=== PATIENT | female | born 1960 | race Caucasian/White ===

== ENCOUNTER 2019-07-04 08:51 | Outpatient (CLI) | payer OTHER, SELFPAY ==
--- NOTE | 2019-07-04 09:12 | CT_ITS ---
WS: [id number] CT CHEST WITH INTRAVENOUS CONTRAST HISTORY: PULMONARY NODULES TECHNIQUE: Contiguous 5 mm axial imaging performed on the thorax. Coronal and sagittal reformats are submitted. All CT scans at [facility] use at least one of these dose optimization techniq ues: automated exposure control; mA and/or kV adjustment per patient size (includes targeted exams wh ere dose is matched to clinical indication); or iterative reconstruction. CONTRAST: Omnipaque 300; 95 mL IV. DLP: 914.59 mGycm COMPARISON: 05/21/2018 Lungs and central airway: Previously described opacifications and atelectasis in the RIGHT middle lob e have resolved since the prior study. Stable micronodules LEFT lower lobe, image 39 of series 3 and RIGHT lower lobe image 33 series 3. No suspicious mass or pneumonia. Pleura: Normal. No pleural effusion. Heart and pericardium: Normal size heart. No pericardial effusion. Mediastinum and hernando: No mediastinum or hilar adenopathy. Vessels: Normal size aortic and pulmonary artery. No coronary artery calcifications. Chest wall and lower neck: No soft tissue masses. Upper abdomen: Numerous gallstones are present in the gallbladder. No adjacent pericholecystic fluid or inflammation. Bilateral small parapelvic cysts. Moderate size hiatal hernia. There is a soft tissu e mass extending posterior from the stomach measuring 1.6 cm. Decreased attenuation centrally suggest ing there may be fluid present. This mass was also present on the prior study but increased in size b y about 5 mm in diameter. Mass is separate from the adrenal gland but does appear to contact the post erior wall of the stomach. Osseous structures: No destructive process. CT/CT chest w con* [id number] IMPRESSION: 1. Resolved RIGHT middle lobe opacification/nodules. No suspicious mass or pne umonia. 2. Cholelithiasis without acute cholecystitis. 3. Gastric diverticulum. 4. Moderate hiatal hernia.
[2019-07-04] MEDS: iohexol 300 mg/mL 100 mL Btl IV (09:34)
== END 2019-07-04 08:52 | disposition home or self-care (01) ==
LOC: RADWPI 08:58
PROVIDERS: PCP Student in an Organized Health Care Education/Training Program; Visit Provider Student in an Organized Health Care Education/Training Program
DX: K80.20 Calculus of gallbladder without cholecystitis without obstruction (principal); K31.4 Gastric diverticulum; K44.9 Diaphragmatic hernia without obstruction or gangrene; R91.8 Other nonspecific abnormal finding of lung field
CPT/HCPCS: 71260; Q9967

== ENCOUNTER → 2019-08-06 14:10 | Outpatient (BNVA) | payer OTHER, SELFPAY | PROVIDERS: PCP Student in an Organized Health Care Education/Training Program; Visit Provider Obstetrics & Gynecology | DX: N39.41 Urge incontinence (principal); N95.2 Postmenopausal atrophic vaginitis | CPT/HCPCS: 81003; 87086 ==

== ENCOUNTER → 2020-08-22 14:58 | Outpatient (BNVA) | payer BC, SELFPAY | PROVIDERS: PCP Student in an Organized Health Care Education/Training Program; Visit Provider Surgery | DX: Z01.812 Encounter for preprocedural laboratory examination (principal); Z20.828 Contact with and (suspected) exposure to other viral communicable diseases | CPT/HCPCS: 87635 ==

== ENCOUNTER 2020-08-28 07:34 | Day surgery (SDC) | payer BC, SELFPAY ==
[2020-08-27 12:57] VITALS: BMI 34.3
[2020-08-28] VITALS (12 sets, daily range): BP systolic 123–149; BP diastolic 68–84; PULSE 50–91; RESP 16–20; TEMP 36.3–36.9; O2SAT 90–97
[2020-08-28] MEDS: sodium chloride 0.9% 1,000 ML 30 ML IV (08:05)
--- NOTE | 2020-08-28 08:27 | ANES.PREANE2 ---
Pre-Anesthetic Assessment Pre-Anesthetic Assessment: Height/Weight: Height 1.63 m Weight 90.718 kg Temp Pulse Resp Pulse Ox 98.4 F 64 18 97 08/28/20 07:55 08/28/20 07:55 08/28/20 07:55 08/28/20 07:55 Preop Diagnosis: hernia Proposed Procedure: Operation Date: 08/28/20 09:00 Proposed Procedures p Incisional Hernia Repair w/ Possible Mesh [id number] K43.0(Not Applicable) - Jesse Ramos MD Familial anesthetic complications: None Was Beta Kevin taken within 24 hours: N/A Was Clonidine taken within 24 hours: N/A Last intake: Intake Last Liquid Date 08/28/20 Last Liquid Time 22:00 Last Solid Date 08/27/20 Last Solid Time 21:00 Social: Social History: No alcohol and No tobacco Exam: Pre-Anes Outpt Exam: alert, oriented x 3, clear to auscultation bilaterally and regular rate & rhythm Airway: Cervical ROM: WNL MP: 4 Dentition: Other (plates) Pulmonary: Pulmonary: Sleep apnea (undiagnosed, but patient states she wakes up after not breathing at night) CV/HEM: Comments: Patient states her Heart Rate drops very low at night, associated with when she obstructs and arouses from sleep GI: GI: GERD and Hiatus hernia Comments: Active GERD today Metabolic: Metabolic: Morbid obesity Anesthetic Plan: ASA status: 2 Anesthesia: General Other: RSI Risk of > 500 ml blood loss (7ml/kg in children): No Meds/Allergies Current Medications: Current Medications Generic Name Dose Route Start Last Admin Trade Name Freq PRN Reason Stop Dose Admin Sodium Chloride 1,000 mls @ 30 ml s/hr 08/28/20 07:45 08/28/20 08:05 Sodium Chloride 0.9% IV 08/29/20 07:44 30 mls/hr .Q24H EBER Administration PFSH Anesthesia PFSH: Medical History (Updated 08/09/19 @ 20:16 by Corey Ramos MD) Hiatal hernia with gastroesophageal reflux Hypertension Surgical History (Updated 08/09/19 @ 20:14 by Corey Ramos MD) H/O section (~1990) H/O: hysterectomy (~1991) With bladder tuck History of cholecystectomy (07/23/19) Laparoscopic History of surgery (~2003) Reports having had a bladder support surgery with some type of mesh used. States surgery was done abdominally. May have had an abdominal sacral colpopexy and [place]. Patient reports having RV fistula repair. Performed by Dr. Ramos at [facility] in [place], [place]. (Records are no longer available from hospital and old chart has not been located in storage.) History of vaginal surgery (07/13/16) Anterior vaginal repair. Dx: Cystocele. Performed by Dr. Ramos at [facility] in [place], [place]. Family History Mother Hypertension Family/Other Lung cancer Maternal Grandfather Diabetes Maternal aunt Social History Smoking and tobacco status: never smoked Alcohol intake: never Data Anesthesia Cardiac Studies: No Data to Display
--- NOTE | 2020-08-28 08:43 | W.PM.OPSUD ---
Surgery/Procedure H&P Update DATE OF PROCEDURE: August 28, 2020 DATE H&P PERFORMED: 08/12/20 H&P UPDATE INFORMATION: No changes to prior documentation PREOP DIAGNOSIS: hernia PLANNED PROCEDURE: Operation Date: 08/28/20 09:00 Proposed Procedures p Incisional Hernia Repair w/ Possible Mesh [id number] K43.0(Not Applicable) - Jesse Ramos MD
[2020-08-28] MEDS: metoclopramide 5 mg/mL SDV 2 mL IVP (08:45)
[2020-08-28] MEDS: famotidine 20 mg/2 mL INJ IVP (08:45)
--- NOTE | 2020-08-28 09:47 | PM.OP ---
Operative Report Date of procedure: August 28, 2020 Pre-op Diagnosis: Incisional hernia. Post-op diagnosis: same Procedure Done: Repair of incisional hernia. Pathology: none sent Surgeon: Jesse Ramos Anesthesia: General Estimated blood loss (mL): 5 Complications: None. Condition: stable Disposition: PACU Procedure: The patient was brought to the operating room and was placed in a supine position on the operating room table. General endotracheal anesthesia was induced. The abdomen was prepped and draped in a sterile fashion. An incision was carried out over the palpable hernia in the right upper quadrant at the lateral aspect of the previous 10 mm port site scar. Cautery was used to divide the subcutaneous tissue and the hernia sac was identified. This was freed on all sides down to the fascia where a defect measuring perhaps 5 cm in greatest diameter was found. The defect was closed transversely using multiple interrupted sutures of 0 Prolene after the hernia sac and contents have been reduced. The wound was irrigated with saline. The skin was reapproximated using a running subcuticular suture of 4-0 Vicryl. Benzoin and Steri-Strips were placed over the incision and the patient was taken to the recovery room postoperatively in stable condition.
[2020-08-28] MEDS: fentaNYL 50 mcg/mL INJ 2mL IVP (10:07)
--- NOTE | 2020-08-28 10:26 | SUR.PHASEI ---
PT SLEEPS WITH PAIN MEDS FOR PAIN OF 9/10 BUT WHEN AWAKE GRIMICES, HOLDS BREATH STATES PAIN IS UNCHANGED , SEE PAIN MED GIVEN EARLIER, PT REPEATEDLY AWAKENED AND INST TO DEEP BREATH, PT NOW ON 3LNC SATS 92% WILL GIVE REPORT TO OPS FOR FOLLOW UP WITH PO PAIN MEDS.
[2020-08-28] MEDS: HYDROcodone-acetaminophen 5-325 mg Tablet 1 TAB PO (10:51)
--- NOTE | 2020-08-28 10:54 | SUR.PHASEI ---
1030 PT IN OPS HANDOFF AT BEDSIDE PT AWAKE ALERT TALKATIVE SATS STABLE ON3LNC AT 94%
[2020-08-28] MEDS: acetaminophen 1,000 MG/100 ML PIGGYBACK 400 MG IV (11:47)
[2020-08-28] MEDS: ketorolac 30 mg/mL INJ IVP (11:47)
--- NOTE | 2020-08-28 20:51 | ANE.PACU2 ---
Inpatient post-anesthesia follow up: Airway intact: Yes Vital signs: Temperature 97.6 F Pulse Rate 52 Respiratory Rate 18 Blood Pressure 139/82 Pulse Oximetry 94 Oxygen Delivery Me thod Room Air Oxygen Flow Rate 3 Fraction of Inspir ed Oxygen Hydration adequate: Yes Nausea and vomiting: No Pain level: 2 Mental status: Baseline
== END 2020-08-28 12:50 | disposition home or self-care (01) ==
PROVIDERS: PCP Student in an Organized Health Care Education/Training Program; Visit Provider Surgery
PROC: (CPT 49560; principal; 2020-08-28 09:00)
DX: K43.2 Incisional hernia without obstruction or gangrene (principal); G47.30 Sleep apnea, unspecified; E66.01 Morbid (severe) obesity due to excess calories; Z68.34 Body mass index [BMI] 34.0-34.9, adult; I10 Essential (primary) hypertension
CPT/HCPCS: 49560; 12345; 96365; 96374; J0330; J0690; J1100; J1885; J2250; J2405; J2704; J2710; J2765; J3010; J3490; J7030